=== PATIENT | female | born 1980 | race Caucasian/White ===

== ENCOUNTER 2018-03-08 21:01 | Emergency (ER) | payer BC ==
[~2018-03-08] VITALS: Ht 167.6 cm; Wt 79.6 kg
[~2018-03-08 21:01] MED LIST: ATORVASTATIN CA40 MG PO; ESCITALOPRAM OX10 MG PO; ZEGERID40 MG PO
[2018-03-08 21:32] LABS: APPEARANCE CLEAR ((CLEAR)); BILIRUBIN NEGATIVE; BLOOD NEGATIVE; COLOR STRAW ((YELLOW)); GLUCOSE (STRIP) NEGATIVE; KETONES NEGATIVE; LEUKOCYTES NEGATIVE; NITRITE NEGATIVE; PROTEIN (STRIP) NEGATIVE; SPECIFIC GRAVITY 1.009 (1.000-1.030); UROBILINOGEN 0.2 MG/DL (0.2-1.0)
[2018-03-08 21:57] LABS: HEMATOCRIT 39.6 % (36.0-46.0); HEMOGLOBIN 14.1 G/DL (11.9-15.5); MCH 31.4 PG (29.0-34.0); MCHC 35.6 G/DL (30.0-36.0); MCV 88.2 FL (83-99); PLATELET COUNT 282 K/uL (156-360); RBC DIS.WIDTH-CV 11.9 % (11.8-14.6); RBC DIS.WIDTH-SD 38.2 % (39-53); RED BLOOD COUNT 4.49 M/uL (3.80-5.20); WHITE BLOOD COUNT 9.5 K/uL (4.1-10.2)
[2018-03-08 22:08] LABS: CHLORIDE 106 mEq/L (99-109); POTASSIUM 3.8 mEq/L (3.7-5.4); SODIUM 141 mEq/L (136-147)
[2018-03-08 22:09] LABS: MAGNESIUM 2.2 mg/dL (1.3-2.7)
[2018-03-08 22:10] LABS: GLUCOSE 98 mg/dL (70-99)
[2018-03-08 22:14] LABS: CREATININE 0.9 mg/dL (0.6-1.3); GFR ESTIMATE (CALCULATED) > 59 mL/min/
[2018-03-08 22:15] LABS: UREA NITROGEN (BUN) 10 mg/dL (9-23)
[2018-03-08 22:17] LABS: CREATINE KINASE 38 IU/L (1-294)
[2018-03-08] MEDS ORDERED: ANTIVERT25 MG PO (23:15)
[2018-03-08 23:26] VITALS: BP 121/83
== END 2018-03-08 23:26 | disposition home or self-care (01) ==
LOC: EXP 21:01 → EME 21:01 → EXP 23:26
PROVIDERS: Physician Assistant
DX: R42 Dizziness and giddiness (principal); Z56.9 Unspecified problems related to employment; E78.5 Hyperlipidemia, unspecified; Z85.820 Personal history of malignant melanoma of skin
CPT/HCPCS: 80048; 81003; 81025; 82550; 83735; 85027; 93005